=== PATIENT | female | born 1970 | race African-American/Black ===

== ENCOUNTER 2019-07-08 10:56 | Outpatient (CLI) | payer BC ==
--- NOTE | 2019-07-08 15:41 | Mammography Report ---
DIGITAL SCREENING MAMMOGRAM WITH CAD, 07/08/2019 INDICATION: Routine screening mammography. TECHNIQUE: Digital bilateral 2D mammography was obtained in the craniocaudal and mediolateral obliq ue projections. This examination was interpreted with the benefit of Computer-Aided Detection analysi s. COMPARISON: 11/13/2015 FINDINGS: Breast Density: The breasts are heterogeneously dense, which may obscure small masses. There is no evidence of dominant mass, suspicious calcifications or architectural distortion in eithe r breast. A group of right upper outer punctate and amorphous calcifications is unchanged previous ex am. IMPRESSION: No mammographic evidence of malignancy. Follow up recommendation: Routine yearly BI-RADS Category 2: Benign. A "normal" or negative report should not discourage follow up or biopsy of a clinically significant f inding. A written summary of these findings will be mailed to the patient. The patient will be entered into a mammography reporting system which will generate a reminder letter for the patient's next appointmen t at the appropriate interval. [employer] recommends yearly mammograms starting at age 40 and continuing as l andrei as a woman is in good health. Breast MRI is recommended for women with an approximate 20-25% or greater lifetime risk of breast cancer, including women with a strong family history of breast or ova sommer cancer or who have been treated for Hodgkin's disease. Signer Name: Chente Gardner MD Signed: 07/08/2019 3:37 PM Workstation Name: [id number]
== END 2019-07-08 10:57 | disposition home or self-care (01) ==
LOC: SPVWC 10:56
PROVIDERS: ATTEND Internal Medicine
DX: Z12.31 Encounter for screening mammogram for malignant neoplasm of breast (principal)
CPT/HCPCS: 77067

== ENCOUNTER 2021-04-20 15:41 | Outpatient (CLI) | payer BC | END 2021-04-20 15:42 | disposition home or self-care (01) | LOC: SPVWC 15:41 | PROVIDERS: ATTEND Internal Medicine | DX: Z12.31 Encounter for screening mammogram for malignant neoplasm of breast (principal) | CPT/HCPCS: 77067 ==